=== PATIENT | male | born 1955 | race Caucasian/White ===

== ENCOUNTER 2020-05-09 12:49 | Emergency (ER) | payer SELFPAY ==
[2020-05-09 12:51] VITALS: BP 141/83; PULSE 87; RESP 16; TEMP 36.2; O2SAT 99; BMI 31.7
--- NOTE | 2020-05-09 13:02 | EKG12_ITS ---
Test Reason : Blood Pressure : / mmHG Vent. Rate : 077 BPM Atrial Rate : 077 BPM P-R Int : 152 ms QRS Dur : 094 ms QT Int : 410 ms P-R-T Axes : 047 -04 041 degrees QTc Int : 463 ms Normal sinus rhythm Low voltage QRS (Limb Leads) Septal [place], age undetermined Confirmed by JOSESITO HOLLY, STAR ([id number]), photographic editor FRIDA JONES ([id number]) on 05/12/2020 12:49:13 PM Referred By: HEMA/RANDELL Confirmed By:STAR BELLAMY MD
--- NOTE | 2020-05-09 13:07 | ED.DCSUM_ITS ---
- ER Visit Summary Date of Service: 05/09/20 Chief Complaint: Cough, shortness of breath History of Present Illness: The patient is a 64 M presenting with cough, shortness of breath. He began having Covid symptoms 1 week ago. He was tested on Monday and test resulted on Monday that he is Covid positive. He states his shortness of breath has increased over the past 2 days. He has a dry cough. He lost his sense of taste and smell. He denies vomiting or diarrhea. He has chest pain with cough and deep breathing. Shortness of breath is worsened with exertion. Chest pain does not worsen with exertion. Denies other complaints. Physical Examination: Vitals are stable. Patient is afebrile. Alert no acute distress. Pulse ox 99% on room air HEENT exam is unremarkable. Neck is supple. Lungs are clear and equal bilaterally. Heart is regular rate and rhythm. Abdomen is soft nontender nondistended. Extremities are unremarkable. Skin is warm and dry. No focal neurologic deficit. Remainder of exam is unremarkable. Emergency Department Course and Treatment: Chest x-ray shows no acute process. EKG is sinus rate of 77 with no acute ischemic changes. CBC, chemistries unremarkable. Troponin is negative. D-dimer negative. His ambulatory pulse ox is 97% on room air. He is resting comfortably on reevaluation. His intermittent chest pain is worsened with coughing. He declines delta troponin. He is advised signs and symptoms for which to return to the ED. Advised to follow-up with primary care physician. Disposition: Discharge home Impression: COVID-19 illness This note was generated with [employer] dictation software. It may contain incorrect words, spelling, and punctuation that were not noted in review of the chart prior to signing ED Disposition - Plan for ED Patient: Instructions: ED Viral Syndrome Referrals: Hunter Padilla MD [Primary Care Provider] -
[2020-05-09 13:18] VITALS: O2SAT 97
[2020-05-09 13:27] LABS: Absolute Lymphocyte Count 2.45 X10^3/uL (0.83-4.51); Absolute Neutrophil Count 4.4 X10^3/uL (2.0-7.7); Basophil# 0.05 X10^3/uL; Basophil% 0.6 % (0-1); Eosinophil# 0.31 X10^3/uL; Hematocrit 47.2 % (40-54); Hemoglobin 15.6 g/dL (13.0-16.5); Lymphocyte # 2.45 X10^3/ul (4.0); Lymphocyte % 31.5 % (19-41); Mean Corp Hgb Conc 33.1 g/dL (32-36); Mean Corpuscular Hgb 29.5 pg (27.0-32.0); Mean Corpuscular Volume 89.4 fL (80-94); Mean Platelet Vol. 10.6 fl (6.2-12.0); Monocyte# 0.55 X10^3/uL; Monocyte% 7.1 % (0-10); NRBC Flagged by Analyzer 0 % (0-5); Neutrophil # 4.39 X10^3/uL (2.7-7.7); Neutrophil % 56.3 % (47-70); Platelet Count 149 K/mm3 (150-450); RBC Distribution Width CV 12.7 % (11.6-14.6); RBC Distribution Width SD 41.4 fl (35.1-43.9); Red Blood Count 5.28 M/mm3 (4.6-6.2); White Blood Count 7.8 K/mm3 (4.4-11.0)
--- NOTE | 2020-05-09 13:30 | RAD_ITS ---
STUDY: X-RAY CHEST REASON FOR EXAM: Male, 64 years old. + covid test, fever, aches TECHNIQUE: Single AP portable view of the chest. COMPARISON: None. FINDINGS: The lungs are clear and expanded. There is no demonstrated pleural abnormality. Normal size heart. Normal mediastinum and adri. Normal visualized pulmonary arteries. Normal visualized aortic arch and descending thoracic aorta. Normal visualized thoracic spine. Normal visualized ribs, clavicles, and shoulders. There is no demonstrated abnormality of the visualized soft tissue structures of the upper abdomen. RAD/Chest 1 View (Portable) IMPRESSION: No active pulmonary disease. Electronically Signed: Ruben Bowen MD at 13:47 EST Tel , Service support ,
[2020-05-09 13:40] LABS: Anion Gap 5 (5-15); BUN 17 mg/dL (7-18); Calcium,Total 8.8 mg/dL (8.5-10.1); Chloride 108 mmol/L (98-107); EST Glomerular Filtration Rate 80 mL/min (>60); Est Glom Filt Rate - Afr Amer 97 mL/min (>60); Estimated Creatinine Clearance 78.07 ml/min; Glucose 112 mg/dL (74-106); Potassium 3.9 mmol/L (3.5-5.1); Sodium Level 138 mmol/L (136-145)
[2020-05-09 13:42] LABS: D-Dimer Quantitative (DVT/PE) <= 0.27 FEU/ug/m (0.27-0.49)
--- NOTE | 2020-05-09 14:01 | ED.DEP ---
ED Disposition - Plan for ED Patient: Instructions: ED Viral Syndrome Referrals: Hunter Padilla MD [Primary Care Provider] -
[2020-05-09 14:16] VITALS: BP 173/90; PULSE 88; RESP 16; O2SAT 95
== END 2020-05-09 14:18 | disposition home or self-care (01) ==
LOC: ED 13:56
PROVIDERS: Emergency Provider Emergency Medicine; PCP Family Medicine
DX: U07.1 COVID-19 (principal); E11.9 Type 2 diabetes mellitus without complications; E78.00 Pure hypercholesterolemia, unspecified; Z79.84 Long term (current) use of oral hypoglycemic drugs; Z79.899 Other long term (current) drug therapy
CPT/HCPCS: 71045; 80048; 84484; 85025; 85379; 93005; 99284; A4216